=== PATIENT | female | born 1960 | race Caucasian/White ===

== ENCOUNTER → 2017-11-17 | Outpatient (REF) | payer OTHER, BC | LOC: M LAB REF 19:14 | DX: R10.2 Pelvic and perineal pain (principal) ==

== ENCOUNTER → 2017-12-29 | Outpatient (CLI) | payer BC ==
[2017-12-29 17:16] LABS: HEMATOCRIT 41.2 % (36.0-47.0); MEAN CORPUSCULAR HEMOGLOBIN 29.6 pg (27.0-33.0); MEAN CORPUSCULAR HGB CONC 31.6 g/dl (32.0-36.5); MEAN CORPUSCULAR VOLUME 93.8 fl (80.0-96.0); PLATELET COUNT, AUTOMATED 245 10^3/uL (150-450); RED BLOOD COUNT 4.39 10^6/uL (4.00-5.40); RED CELL DISTRIBUTION WIDTH 12.1 % (11.5-14.5); WHITE BLOOD COUNT 3.4 10^3/uL (4.0-10.0)
[2017-12-29 17:44] LABS: ALBUMIN 3.7 GM/DL (3.2-5.2); ALBUMIN/GLOBULIN RATIO 1.42 (1.00-1.93); ALKALINE PHOSPHATASE 55 U/L (45-117); ALT/SGPT 25 U/L (12-78); ANION GAP 3 MEQ/L (8-16); AST/SGOT 14 U/L (7-37); BILIRUBIN,TOTAL 0.2 MG/DL (0.2-1.0); BLOOD UREA NITROGEN 18 MG/DL (7-18); CALCIUM LEVEL 8.4 MG/DL (8.5-10.1); CARBON DIOXIDE LEVEL 31 MEQ/L (21-32); CHLORIDE LEVEL 110 MEQ/L (98-107); CHOLESTEROL LEVEL 186 MG/DL (<200); CHOLESTEROL RISK RATIO 2.296 (<5); CREATININE FOR GFR 0.68 MG/DL (0.55-1.30); GLOMERULAR FILTRATION RATE > 60.0 (>51); GLUCOSE, FASTING 106 MG/DL (70-100); HDL CHOLESTEROL 81 MG/DL (>40); LDL CHOLESTEROL 88.2 MG/DL (<100); NON-HDL-C 105 MG/DL; POTASSIUM SERUM 4.6 MEQ/L (3.5-5.1); SODIUM LEVEL 144 MEQ/L (136-145); TOTAL PROTEIN 6.3 GM/DL (6.4-8.2); TRIGLYCERIDES LEVEL 84 MG/DL (<150)
[2017-12-29 18:27] LABS: ESTIMATED AVERAGE GLUCOSE 128 MG/DL (60-110); HEMOGLOBIN A1c 6.1 %
[2017-12-30 10:40] LABS: TOTAL 25(OH) VITAMIN D 31.5 NG/ML (30.0-100.0)
== END ==
LOC: M WUC 08:18
DX: E66.3 Overweight (principal); E55.9 Vitamin D deficiency, unspecified; M85.80 Other specified disorders of bone density and structure, unspecified site; R73.01 Impaired fasting glucose; Z13.6 Encounter for screening for cardiovascular disorders
CPT/HCPCS: 84443

== ENCOUNTER 2019-08-08 10:02 | Emergency (ER) | payer BC ==
[~2019-08-08] VITALS: Ht 157.5 cm; Wt 70.1 kg
[2019-08-08] MEDS ORDERED: NS 1,000 ML IV ONE (10:45)
[2019-08-08 11:05] LABS: URINE PREG TEST NEGATIVE (NEGATIVE)
[2019-08-08 11:15] LABS: BASO % 0.2 % (0.0-1.0); EOS # 0.1 10^3/uL (0.0-0.5); EOS % 1.5 % (0.0-3.0); HEMOGLOBIN 13.3 g/dl (12.0-15.5); LYMPH # 1.5 10^3/uL (1.5-5.0); LYMPH % 27.9 % (24.0-44.0); MEAN CORPUSCULAR HEMOGLOBIN 30.7 pg (27.0-33.0); MEAN CORPUSCULAR HGB CONC 32.4 g/dl (32.0-36.5); MEAN CORPUSCULAR VOLUME 94.7 fl (80.0-96.0); MONO # 0.5 10^3/uL (0.0-0.8); MONO % 9.3 % (0.0-5.0); NEUTROPHILS # 3.3 10^3/uL (1.5-8.5); NEUTROPHILS % 60.9 % (36.0-66.0); PLATELET COUNT, AUTOMATED 251 10^3/uL (150-450); RED BLOOD COUNT 4.33 10^6/uL (4.00-5.40); WHITE BLOOD COUNT 5.4 10^3/uL (4.0-10.0)
[2019-08-08 11:37] LABS: ALBUMIN 3.4 GM/DL (3.2-5.2); BILIRUBIN,DIRECT 0.1 MG/DL (0.0-0.2); BILIRUBIN,TOTAL 0.4 MG/DL (0.2-1.0); TOTAL PROTEIN 6.5 GM/DL (6.4-8.2)
--- NOTE | 2019-08-08 11:54 | REP ---
Right upper quadrant sonography: History: However quadrant pain. Comparison study: No comparison study. Findings: Scanning through the right upper quadrant of the abdomen demonstrates a normal sized, thin-walled gallbladder without evidence of stone or polyp. Common bile duct is normal measuring 0.3 cm in greatest diameter. No focal liver lesion is seen. Liver size is normal. No pancreatic abnormality is observed. No right renal abnormality is seen. There is no evidence of ascites. The right kidney measures 9.2 x 5.4 x 3.8 cm. Impression: Negative right upper quadrant sonography. Electronically Signed by Navneet Duff MD 08/08/2019 11:45 A
[2019-08-08] MEDS ORDERED: ISOVUE-370 76% 100ML VIAL (Q9967) As Ordered ONE (12:43)
[2019-08-08] MEDS ORDERED: AZIT-12 PO (13:59)
--- NOTE | 2019-08-08 14:11 | REP ---
CT abdomen and pelvis with IV but without oral contrast: History: Right upper quadrant pain. Rule out abscess. No comparison CT study. CT contrast dose: 100 mL of intravenous Isovue [address] findings: Preliminary digital center medical and lab director radiograph shows a normal bowel gas pattern. On lung window settings, there is localized pulmonary parenchymal opacity in the right lower lobe medially consistent with a focus of pneumonia. This involves the medial basal segment of the right lower lobe and in the azygoesophageal recess region. There is some patchy atelectasis or consolidation in the left lower lobe medially as well. No pleural effusion is seen. The liver and the spleen are normal in size, homogeneous in texture. No adrenal lesion is seen. The pancreas is unremarkable. No abnormality is noted in the gallbladder. There are small parapelvic cysts in the left kidney. No hydronephrosis is seen. No renal mass lesion is observed. There is no evidence of abdominal abscess or abnormal fluid collection. No ascites is seen. A normal appendix is seen draped over the iliac vessels in the right lower quadrant. No uterine or ovarian abnormality is seen. There are tubal ligation bands bilaterally. Small and large bowel loops are unremarkable. Impression: No acute abdominal abnormality is seen. No abscess is seen. Normal appendix noted. There is an infiltrate in the right lower lobe of the lung posterobasal segment. A small focus of patchy consolidation is seen in the left lower lobe. These changes are consistent with pneumonia. Electronically Signed by Navneet Duff MD 08/08/2019 02:26 P
[2019-08-08 14:23] VITALS: BP 120/74
--- NOTE | 2019-08-08 19:23 | ECGEPIP ---
[facility] - ED Test Date: 2019-08-08 Pat Name: LORRIE DEAN Department: Room: - Gender: Female Biometric Screener: : 1960 Requested By: Cathie Henao PA-C Order Number: [id number] Reading MD: Hung Ayala Measurements Intervals [place] Rate: 75 P: 38 SC: 151 QRS: 60 QRSD: 84 T: 56 QT: 369 QTc: 412 Interpretive Statements SINUS RHYTHM NONSPECIFIC T-WAVE ABNORMALITY NO PRIORS FOR COMPARISON Electronically Signed on 08-08-2019 19:23:31 EDT by Hung Ayala
== END 2019-08-08 14:36 | disposition home or self-care (01) ==
LOC: M ED 10:02
DX: J18.1 Lobar pneumonia, unspecified organism (principal); F17.200 Nicotine dependence, unspecified, uncomplicated; Z90.89 Acquired absence of other organs; Z88.8 Allergy status to other drugs, medicaments and biological substances
CPT/HCPCS: 36415; 74177; 76705; 80047; 80076; 81001; 82150; 83690; 84703; 85025; 93005; 96360; 99284; Q9967

== ENCOUNTER → 2019-08-28 | Outpatient (CLI) | payer BC ==
[~2019-08-28] MED LIST: AZIT-12 PO
[2019-08-28 17:31] LABS: C REACTIVE PROTEIN QUANTITATIV 1.39 MG/DL (0.00-0.30); RHEUMATOID FACTOR QUANT < 10.0 IU/ML (<15.0); URIC ACID 2.9 MG/DL (2.6-6.0)
== END ==
LOC: M WUC 14:12
PROVIDERS: ATTEND Internal Medicine
DX: Z03.89 Encounter for observation for other suspected diseases and conditions ruled out (principal); M06.4 Inflammatory polyarthropathy

== ENCOUNTER → 2019-09-25 | Outpatient (CLI) | payer BC ==
[2019-09-29 00:06] LABS: Lyme Disease IgG/IgM Antibodie <0.91 ISR (0.00-0.90); Lyme Disease IgM Ab Quantitati <0.80 index (0.00-0.79)
== END ==
LOC: M WUC 14:09
PROVIDERS: ATTEND Internal Medicine
DX: Z11.8 Encounter for screening for other infectious and parasitic diseases (principal); M25.50 Pain in unspecified joint

== ENCOUNTER 2019-11-17 14:28 | Emergency (ER) | payer BC ==
[~2019-11-17] VITALS: Ht 157.5 cm; Wt 65.8 kg
[2019-11-17] MEDS ORDERED: supplements (14:39)
[2019-11-17] MEDS ORDERED: NS 1,000 ML IV ONE (18:00)
--- NOTE | 2019-11-17 18:10 | REPVR ---
PROCEDURE INFORMATION: Exam: CT Head Without Contrast Exam date and time: 11/17/2019 5:57 PM Age: 59 years old Clinical indication: Other: Poss CVA; Additional info: CVA - nursing interventions must not delay CT TECHNIQUE: Imaging protocol: Computed tomography of the head without contrast. Radiation optimization: All CT scans at this facility use at least one of these dose optimization techniques: automated exposure control; mA and/or kV adjustment per patient size (includes targeted exams where dose is matched to clinical indication); or iterative reconstruction. Other technique: STROKE PROTOCOL was implemented. COMPARISON: No relevant prior studies available. FINDINGS: Brain: Normal. No hemorrhage. Unremarkable white matter. No mass effect. Ventricles: Normal. No ventriculomegaly. Bones/joints: Unremarkable. No acute fracture. Sinuses: Visualized sinuses are unremarkable. No fluid levels. Mastoid air cells: Visualized mastoid air cells are well aerated. Soft tissues: Unremarkable. IMPRESSION: No acute intracranial abnormality. ASSESSMENT: ASPECTS ([place] Stroke Program Early CT Score) is 10. Electronically signed by: Ana Wynn On 11/17/2019 18:10:28 PM
[2019-11-17 18:30] LABS: BASO % 0.4 % (0.0-1.0); EOS # 0.1 10^3/uL (0.0-0.5); EOS % 2.1 % (0.0-3.0); HEMATOCRIT 43.4 % (36.0-47.0); HEMOGLOBIN 13.8 g/dl (12.0-15.5); LYMPH # 2.1 10^3/uL (1.5-5.0); LYMPH % 43.8 % (24.0-44.0); MEAN CORPUSCULAR HEMOGLOBIN 29.5 pg (27.0-33.0); MEAN CORPUSCULAR HGB CONC 31.8 g/dl (32.0-36.5); MEAN CORPUSCULAR VOLUME 92.7 fl (80.0-96.0); MONO # 0.4 10^3/uL (0.0-0.8); MONO % 8.9 % (0.0-5.0); NEUTROPHILS # 2.1 10^3/uL (1.5-8.5); NEUTROPHILS % 44.6 % (36.0-66.0); PLATELET COUNT, AUTOMATED 273 10^3/uL (150-450); RED BLOOD COUNT 4.68 10^6/uL (4.00-5.40); WHITE BLOOD COUNT 4.7 10^3/uL (4.0-10.0)
--- NOTE | 2019-11-17 18:41 | REP ---
CHEST, TWO VIEWS: There is no evidence of acute infiltrate. No pleural effusion is seen. The heart is normal in size. The mediastinal silhouette is unremarkable. The visualized osseous structures are intact. IMPRESSION: No acute pulmonary disease. Electronically Signed by Darryn Christiansen MD 11/18/2019 10:30 P
[2019-11-17 18:48] LABS: INR 1.06; PROTHROMBIN TIME 13.6 SECONDS (11.8-14.0)
[2019-11-17 18:52] LABS: MONO REFLEX EBV COMP NEGATIVE (NEGATIVE)
[2019-11-17 18:55] LABS: CK-MB VALUE MASS < 1.0 NG/ML (<3.6); CPK CREATINE PHOSPHOKINASE 91 U/L (26-192); MAGNESIUM LEVEL 2.4 MG/DL (1.8-2.4); TROPONIN I < 0.02 NG/ML (< 0.10)
[2019-11-17 20:32] VITALS: BP 117/59
[2019-11-17 20:37] LABS: VITAMIN B12 LEVEL > 2000 PG/ML (247-911)
[2019-11-17 21:15] LABS: ERYTHROCYTE SEDIMENTATION RATE 5 mm/hr (0-30)
--- NOTE | 2019-11-18 07:08 | ECGEPIP ---
[facility] - ED Test Date: 2019-11-17 Pat Name: LORRIE DEAN Department: Room: - Gender: Female Frit Maker: JOLENEKELLI : 1960 Requested By: SMITHA Hopper PA-C Order Number: [id number] Reading MD: Hung Ayala Measurements Intervals [place] Rate: 70 P: 72 RI: 143 QRS: 77 QRSD: 89 T: 65 QT: 386 QTc: 418 Interpretive Statements SINUS RHYTHM SIMILAR TO 08/08/19 Electronically Signed on 11-18-2019 7:08:27 EST by Hung Ayala
[2019-11-21 00:07] LABS: EBV VIRAL CAPSID AG IgG >600.0 U/mL (0.0-17.9); EBV VIRAL CAPSID AG IgM <36.0 U/mL (0.0-35.9); Lyme Disease IgG/IgM Antibodie <0.91 ISR (0.00-0.90); Lyme Disease IgM Ab Quantitati <0.80 index (0.00-0.79); MYCOPLASMA PNEUMONIAE IgG 979 U/mL (0-99); MYCOPLASMA PNEUMONIAE IgM <770 U/mL (0-769)
== END 2019-11-17 21:13 | disposition home or self-care (01) ==
LOC: M ED 14:28
DX: H53.8 Other visual disturbances (principal); R53.83 Other fatigue; M25.50 Pain in unspecified joint; F17.200 Nicotine dependence, unspecified, uncomplicated; Z88.8 Allergy status to other drugs, medicaments and biological substances

== ENCOUNTER → 2019-12-03 | Outpatient (REF) | payer BC ==
[~2019-12-03] MED LIST changes: +supplements
[2019-12-03 20:20] LABS: BASO % 0.2 % (0.0-1.0); HEMATOCRIT 42.5 % (36.0-47.0); HEMOGLOBIN 13.6 g/dl (12.0-15.5); LYMPH # 1.3 10^3/uL (1.5-5.0); LYMPH % 32.6 % (24.0-44.0); MEAN CORPUSCULAR HEMOGLOBIN 29.4 pg (27.0-33.0); MONO # 0.3 10^3/uL (0.0-0.8); MONO % 8.1 % (0.0-5.0); NEUTROPHILS # 2.4 10^3/uL (1.5-8.5); NEUTROPHILS % 57.9 % (36.0-66.0); PLATELET COUNT, AUTOMATED 218 10^3/uL (150-450); RED BLOOD COUNT 4.62 10^6/uL (4.00-5.40); WHITE BLOOD COUNT 4.1 10^3/uL (4.0-10.0)
[2019-12-03 20:40] LABS: ERYTHROCYTE SEDIMENTATION RATE 4 mm/hr (0-30)
[2019-12-04 10:07] LABS: ALBUMIN 3.9 GM/DL (3.2-5.2); ALT/SGPT 27 U/L (12-78); BILIRUBIN,TOTAL 0.2 MG/DL (0.2-1.0); BLOOD UREA NITROGEN 19 MG/DL (7-18); CARBON DIOXIDE LEVEL 30 MEQ/L (21-32); CHLORIDE LEVEL 107 MEQ/L (98-107); CREATININE FOR GFR 0.77 MG/DL (0.55-1.30); FREE T4 1.02 NG/DL (0.76-1.46); GLOMERULAR FILTRATION RATE > 60.0 (>51); GLUCOSE, FASTING 109 MG/DL (70-100); RHEUMATOID FACTOR QUANT < 10.0 IU/ML (<15.0); SODIUM LEVEL 142 MEQ/L (136-145); TOTAL PROTEIN 6.8 GM/DL (6.4-8.2)
[2019-12-04 10:15] LABS: VITAMIN B12 LEVEL > 2000 PG/ML
[2019-12-04 10:16] LABS: FOLATE 17.9 NG/ML
[2019-12-10 00:08] LABS: ANTINUCLEAR ANTIBODIES DIRECT Negative (Negative); VITAMIN B1 LEVEL WHOLE BLOOD 125.6 nmol/L (66.5-200.0); VITAMIN B6,PYRIDOXAL PHOSPHATE 42.6 ug/L (2.0-32.8); VITAMIN E(GAMMA TOCOPHEROL) 0.8 mg/L (0.5-5.5)
== END ==
LOC: M LABNEURO 12:38
PROVIDERS: ATTEND Psychiatry & Neurology Neurology
DX: E07.9 Disorder of thyroid, unspecified (principal); R41.0 Disorientation, unspecified; R26.81 Unsteadiness on feet; G62.9 Polyneuropathy, unspecified

== ENCOUNTER → 2019-12-10 | Outpatient (CLI) | payer BC ==
[2019-12-10 15:10] LABS: BASO % 0.2 % (0.0-1.0); EOS # 0.1 10^3/uL (0.0-0.5); HEMATOCRIT 41.7 % (36.0-47.0); HEMOGLOBIN 13.6 g/dl (12.0-15.5); LYMPH # 1.4 10^3/uL (1.5-5.0); LYMPH % 35.1 % (24.0-44.0); MEAN CORPUSCULAR HEMOGLOBIN 29.6 pg (27.0-33.0); MEAN CORPUSCULAR HGB CONC 32.6 g/dl (32.0-36.5); MEAN CORPUSCULAR VOLUME 90.7 fl (80.0-96.0); MONO # 0.4 10^3/uL (0.0-0.8); MONO % 9.4 % (0.0-5.0); NEUTROPHILS # 2.1 10^3/uL (1.5-8.5); NEUTROPHILS % 53.1 % (36.0-66.0); PLATELET COUNT, AUTOMATED 250 10^3/uL (150-450)
[2019-12-10 15:30] LABS: ERYTHROCYTE SEDIMENTATION RATE 4 mm/hr (0-30)
[2019-12-10 15:46] LABS: ALBUMIN 3.8 GM/DL (3.2-5.2); ALT/SGPT 23 U/L (12-78); BILIRUBIN,TOTAL 0.4 MG/DL (0.2-1.0); BLOOD UREA NITROGEN 13 MG/DL (7-18); CALCIUM LEVEL 8.9 MG/DL (8.5-10.1); CARBON DIOXIDE LEVEL 29 MEQ/L (21-32); CHLORIDE LEVEL 107 MEQ/L (98-107); CREATININE FOR GFR 0.74 MG/DL (0.55-1.30); FREE T4 1.04 NG/DL (0.76-1.46); GLOMERULAR FILTRATION RATE > 60.0 (>51); GLUCOSE, FASTING 121 MG/DL (70-100); POTASSIUM SERUM 3.8 MEQ/L (3.5-5.1); RHEUMATOID FACTOR QUANT < 10.0 IU/ML (<15.0); SODIUM LEVEL 139 MEQ/L (136-145); THYROID STIMULATING HORMONE 0.958 uIU/ML (0.358-3.740); TOTAL PROTEIN 6.5 GM/DL (6.4-8.2); VITAMIN B12 LEVEL > 2000 PG/ML
== END ==
LOC: M LAB 12-09 15:10
PROVIDERS: ATTEND Psychiatry & Neurology Neurology
DX: R41.0 Disorientation, unspecified (principal); E07.9 Disorder of thyroid, unspecified